=== PATIENT | female | born 1965 | race Asian ===

== ENCOUNTER 2021-08-01 22:07 | Emergency (ER) | payer OTHER ==
[~2021-08-01] VITALS: Ht 157.5 cm; Wt 54.4 kg
[2021-08-01 23:40] VITALS: BP 133/68
[2021-08-02] MEDS ORDERED: TDAP [DIPH/PERTUSSIS/TET] 0.5 ML VIAL IM ONE ×2 (00:15→00:30)
[2021-08-02] MEDS ORDERED: SULF1TAB48 PO (00:20)
[2021-08-02] MEDS ORDERED: IBUP-1953 PO (00:20)
[2021-08-02] MEDS ORDERED: ACETAMINOPHEN 325 MG TABLET ONE (00:20)
[2021-08-02] MEDS ORDERED: ACETAMINOPHEN 325 MG TABLET PO ONE (00:30)
== END 2021-08-02 00:36 | disposition home or self-care (01) ==
LOC: ER 22:13
DX: S61.213A Laceration without foreign body of left middle finger without damage to nail, initial encounter (principal); K21.9 Gastro-esophageal reflux disease without esophagitis; Z60.2 Problems related to living alone; Z79.1 Long term (current) use of non-steroidal anti-inflammatories (NSAID); Z79.899 Other long term (current) drug therapy; W26.0XXA Contact with knife, initial encounter; Y93.89 Activity, other specified; Y92.89 Other specified places as the place of occurrence of the external cause; Y99.8 Other external cause status
CPT/HCPCS: 90715